=== PATIENT | male | born 1950 | race African-American/Black ===

== ENCOUNTER 2020-07-21 10:18 | Emergency (ER) | payer OTHER | END 2020-07-21 13:20 | disposition home or self-care (01) | LOC: CSHERS 10:18 | DX: I95.9 Hypotension, unspecified (principal); I10 Essential (primary) hypertension; E78.5 Hyperlipidemia, unspecified; E11.9 Type 2 diabetes mellitus without complications; J45.909 Unspecified asthma, uncomplicated; Z79.899 Other long term (current) drug therapy | CPT/HCPCS: 99284 ==